=== PATIENT | male | born 2000 | race Caucasian/White ===

== ENCOUNTER 2024-10-30 09:48 | Emergency (ER) | payer SELFPAY ==
[2024-10-30 09:54] VITALS: BP 123/76; PULSE 77; RESP 18; TEMP 98.2; BMI 28.5
[2024-10-30] MEDS ORDERED: IBUPROFEN 600 MG TABLET (FP) PO ONE (10:27)
[2024-10-30] MEDS ORDERED: CLINDAMYCIN HCL 150 MG CAPSULE (FP) ONE (10:27)
[2024-10-30] MEDS: IBUPROFEN 600 MG TABLET (FP) PO ONE (10:31)
[2024-10-30] MEDS: CLINDAMYCIN HCL 150 MG CAPSULE (FP) PO ONE (10:31)
== END 2024-10-30 11:10 | disposition home or self-care (01) ==
LOC: EDBD 09:48 → JERFT 09:48
DX: L03.116 Cellulitis of left lower limb (principal); M79.672 Pain in left foot
CPT/HCPCS: 99283-25